=== PATIENT | male | born 1990 | race African-American/Black ===

== ENCOUNTER 2017-03-06 18:17 | Emergency (ER) | payer OTHER ==
[~2017-03-06] VITALS: Ht 180.3 cm; Wt 91.0 kg
[2017-03-06] MEDS ORDERED: ONDANSETRON 4MG ODT PO ONE (22:15)
[2017-03-06] MEDS ORDERED: ACETAMINOPHEN 500MG TABLET PO ONE (22:15)
[2017-03-06 23:30] VITALS: BP 120/75
== END 2017-03-07 06:06 | disposition home or self-care (01) ==
LOC: ER 18:18
DX: B34.9 Viral infection, unspecified (principal); J45.909 Unspecified asthma, uncomplicated; F12.10 Cannabis abuse, uncomplicated; Z88.0 Allergy status to penicillin
CPT/HCPCS: 99283; Q0162; Z7610